=== PATIENT | female | born 2000 | race Two or more races ===

== ENCOUNTER 2023-11-30 11:29 | Emergency (ER) | payer BC, MEDICAID ==
[~2023-11-30] VITALS: Ht 170.2 cm; Wt 83.2 kg
[2023-11-30 12:28] LABS: Urine Bacteria None Seen /hpf (None Seen); Urine WBC None Seen /hpf (0 - 5)
[2023-11-30 12:55] LABS: Urine Blood Negative /uL (Negative); Urine Clarity Clear (Clear); Urine Color Light-Yellow (Yellow); Urine Protein, UAD Negative (Negative); Urine Specific Gravity 1.017 (1.001-1.035); Urine Urobilinogen Normal (Negative); Urine pH 6.5 (5.0-9.0)
[2023-11-30 13:30] VITALS: BP 106/59; TEMP 98.6
[2023-11-30 14:00] VITALS: PULSE 88; RESP 16; O2SAT 98
== END 2023-11-30 14:05 | disposition home or self-care (01) ==
LOC: ER 11:29
DX: O99.351 Diseases of the nervous system complicating pregnancy, first trimester (principal); G43.901 Migraine, unspecified, not intractable, with status migrainosus; Z3A.10 10 weeks gestation of pregnancy
CPT/HCPCS: 81001; 82962; 93005

== ENCOUNTER 2025-01-06 22:31 | Emergency (ER) | payer BC, MEDICAID ==
[~2025-01-06] VITALS: Ht 170.2 cm; Wt 165.0 kg
[2025-01-06 22:34] VITALS: BP 132/64; RESP 20; TEMP 97.7; O2SAT 99
[2025-01-06 22:43] VITALS: PULSE 80
--- NOTE | 2025-01-06 22:46 | ECG ---
[facility] Test Date: 2025-01-06 Test Time: 22:43:23 Pat Name: HERLINDA ZAVALA Department: ED Room: Gender: F Body Worker: fabien : 2000 Requested By: MAKAYLA FRAZIER Order Number: [id number] Reading MD: Wilmar Tompkins Measurements Intervals [place] Rate: 60 P: -2 ME: 137 QRS: 73 QRSD: 81 T: 68 QT: 415 QTc: 415 Interpretive Statements Sinus arrhythmia Electronically Signed On 01-07-2025 14:46:05 PST by Wilmar Tompknis Please click the below link to view image of tracing.
[2025-01-06 23:14] LABS: Hematocrit 42.0 % (36.0-46.0); Hemoglobin 13.9 g/dL (12.2-16.2); Mean Corpuscular Hemoglobin 26.5 pg (28.0-32.0); Mean Corpuscular Volume 80.0 fL (80.0-100.0); Nucleated Red Blood Cells % 0.1 %
[2025-01-06 23:25] LABS: Alanine Aminotransferase 17 U/L (7-40); Albumin 4.4 g/dL (3.2-4.8); Alkaline Phosphatase 89 U/L (46-116); Anion Gap 10 (5-15); BUN/Creatinine Ratio 9.1 (10.0-20.0); Bilirubin, Total 0.4 mg/dL (0.2-1.0); Calcium 9.9 mg/dL (8.7-10.4); Carbon Dioxide 25 mmol/L (20-31); Glucose 92 mg/dL (74-106); Potassium 4.4 mmol/L (3.5-5.1); Sodium 142 mmol/L (136-145); Total Protein 7.4 g/dL (5.7-8.2)
[2025-01-06 23:27] LABS: Blood Urea Nitrogen 7 mg/dL (9-23); Chloride 107 mmol/L (98-107)
== END 2025-01-06 23:35 | disposition left against medical advice (07) ==
LOC: ER 22:31
DX: R00.2 Palpitations (principal); Z53.21 Procedure and treatment not carried out due to patient leaving prior to being seen by health care provider
CPT/HCPCS: 36415; 80053; 84484; 85025; 93005